=== PATIENT | male | born 1985 | race Native Hawaiian/Other Pacific Islander ===

== ENCOUNTER 2018-10-12 14:08 | Emergency (ER) | payer OTHER ==
[~2018-10-12] VITALS: Ht 170.2 cm; Wt 68.0 kg
[2018-10-12 15:12] LABS: PLATELET COUNT 145 K/uL (142-355)
[2018-10-12 15:18] LABS: POTASSIUM 3.5 mmol/L (3.6-5.2)
[2018-10-12 15:24] LABS: PARTIAL THROMBOPLASTIN TIME 23.4 SECONDS (24.5-33.6)
[2018-10-12 15:43] VITALS: BP 133/82; TEMP 98.3
== END 2018-10-12 15:47 ==
LOC: ED 14:08
PROVIDERS: Hospitalist
DX: K40.90 Unilateral inguinal hernia, without obstruction or gangrene, not specified as recurrent (principal); K59.00 Constipation, unspecified
CPT/HCPCS: 80053; 82150; 83690; 85027; 85610; 85730; 96374; 96375; 99284; J1885; J2405